=== PATIENT | female | born 1940 | race African-American/Black ===

== ENCOUNTER 2021-01-11 14:18 | Outpatient (CLI) | payer OTHER, SELFPAY ==
--- NOTE | ~2021-01-11 | MM_ITS ---
EXAMINATION: MM screening [facility] BI w elio HISTORY: Screening mammogram TECHNIQUE: Craniocaudal and mediolateral oblique 3-D tomosynthesis images were obtained and synthetic 2-D images were generated. CAD analysis was submitted and interpreted. COMPARISON: 10/12/2018, 02/21/2017, 08/05/2015 BREAST PARENCHYMAL COMPOSITION: The breasts are almost entirely fatty. FINDINGS: RIGHT BREAST: There are asymmetries of the slightly inner breast in line with the nipple axis on the craniocaudal view. LEFT BREAST: There is no evidence of suspicious mass, calcification, or architectural distortion to s uggest malignancy. There has been no significant interval change. IMPRESSION: 1. Right breast asymmetries. 2. Additional mammographic views and possible breast ultrasound are recommended. BI-RADS Category 0: Incomplete: Needs additional imaging evaluation. Reviewed, dictated and finalized at location A. IMPRESSION: 1. Right breast asymmetries. 2. Additional mammographic views and possible breast ultrasound are recommended . BI-RADS Category 0: Incomplete: Needs additional imaging evaluation.
== END 2021-01-11 14:19 | disposition home or self-care (01) ==
DX: Z12.31 Encounter for screening mammogram for malignant neoplasm of breast (principal); R92.8 Other abnormal and inconclusive findings on diagnostic imaging of breast
CPT/HCPCS: 77063; 77067

== ENCOUNTER → 2022-11-05 09:12 | Outpatient (CLI) | payer OTHER, SELFPAY ==
--- NOTE | ~2022-11-05 | MR_ITS ---
EXAMINATION: MR knee RT wo con DATE: 11/05/2022 10:36 INDICATION: Anterior and medial right knee pain x1 year. No trauma. TECHNIQUE: Magnetic resonance imaging (MRI) of the right knee was performed without intravenous contr ast. Sequences included axial PD-weighted FS FSE, coronal PD-weighted FSE and PD-weighted FS FSE, sag ittal PD-weighted FSE, and sagittal T2-weighted FS FSE. COMPARISON: None. FINDINGS: Medial compartment: Severe degenerative change of the medial meniscus, volume loss and fraying, with medial extrusion. Di ffuse full-thickness cartilage loss in the medial compartment. Severe osteophytosis. Lateral compartment: Degenerative signal change and apical fraying of the lateral meniscus. Moderate diffuse cartilage thi nning, with focal areas of fissuring. Severe osteophytosis. Patellofemoral compartment: Moderate diffuse thinning, multifocal areas of full-thickness cartilage loss, medial subchondral cyst formation. Moderate osteophytosis. Intact retinacula. Ligaments and tendons: Thin ACL. Chronic thickening of the MCL as can be seen with chronic partial tear. The PCL and LCL are intact. Remaining flexor and extensor tendons are intact. Quadriceps enthesopathy. Fluid: Large volume joint fluid. Trace Sanford's cyst. Osseous/other: No suspicious focal or diffuse marrow signal. Multiloculated cystic structure in the infrapatellar fa t pad, without surrounding inflammatory change or edema, may represent a ganglion cyst. IMPRESSION: 1. Tricompartmental osteoarthritic change, severe in the medial compartment. 2. 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 3. Large right knee joint effusion. Reviewed, dictated and finalized at location K. TEACHER
== END ==
DX: M25.561 Pain in right knee (principal); M17.0 Bilateral primary osteoarthritis of knee; S83.421A Sprain of lateral collateral ligament of right knee, initial encounter; S83.411A Sprain of medial collateral ligament of right knee, initial encounter; M25.461 Effusion, right knee
CPT/HCPCS: 73721